=== PATIENT | male | born 1990 | race Caucasian/White ===

== ENCOUNTER 2017-07-07 15:32 | Emergency (ER) | payer MEDICAID ==
[~2017-07-07] VITALS: Ht 193 cm; Wt 84.5 kg
[2017-07-07 15:34] VITALS: BP 141/84
[2017-07-07] MEDS ORDERED: IBUPROFEN 200 MG TABLET PO ONE (16:00)
[2017-07-07] MEDS ORDERED: IBUPROFEN 200 MG TABLET ONE (16:05)
== END 2017-07-07 16:58 | disposition home or self-care (01) ==
LOC: ED 16:45
DX: S90.31XA Contusion of right foot, initial encounter (principal); W22.8XXA Striking against or struck by other objects, initial encounter; Y93.89 Activity, other specified; Y99.8 Other external cause status; Y92.009 Unspecified place in unspecified non-institutional (private) residence as the place of occurrence of the external cause
CPT/HCPCS: 99284

== ENCOUNTER 2017-08-07 02:00 | Emergency (ER) | payer MEDICAID ==
[~2017-08-07] VITALS: Ht 193 cm; Wt 97.6 kg
[2017-08-07 02:05] VITALS: BP 166/91
[2017-08-07] MEDS ORDERED: PENI500T PO (03:23)
[2017-08-07] MEDS ORDERED: NAPR-856 PO (03:24)
[2017-08-07] MEDS ORDERED: HYDROcodone/APAP 5/325 TABLET ONE (03:25)
[2017-08-07] MEDS ORDERED: HYDROcodone/APAP 5/325 TABLET PO STA (03:26)
== END 2017-08-07 03:46 ==
LOC: ED 03:14
DX: K02.9 Dental caries, unspecified (principal)
CPT/HCPCS: 99283

== ENCOUNTER 2017-09-19 19:38 | Emergency (ER) | payer MEDICAID ==
[~2017-09-19] VITALS: Ht 193 cm; Wt 83.8 kg
[~2017-09-19 19:38] MED LIST: NAPR-856 PO; PENI500T PO
[2017-09-19 20:08] LABS: BASOPHILS # (AUTO) 0.01 x10^3/uL (0-0.1); BASOPHILS % (AUTO) 0 % (0-1); EOSINOPHILS % (AUTO) 1 % (1-7); LYMPHOCYTES # (AUTO) 0.64 x10^3/uL (1-3.4); LYMPHOCYTES % (AUTO) 6 % (22-44); MD NO; MEAN CORPUSCULAR HEMOGLOBIN 30.1 pg (27.5-34.5); MEAN CORPUSCULAR VOLUME 88.6 fL (81-97); MEAN PLATELET VOLUME 8.1 fL (7.4-10.4); MONOCYTES # (AUTO) 0.79 x10^3/uL (0.2-0.8); MONOCYTES % (AUTO) 8 % (2-9); NEUTROPHILS # (AUTO) 8.57 x10^3/uL (1.8-6.8); NEUTROPHILS % (AUTO) 85 % (42-75); PLATELET COUNT 280 x10^3/uL (130-400); RED CELL DISTRIBUTION WIDTH 14.3 % (9.4-14.8)
[2017-09-19 20:20] LABS: ANION GAP 7 mmol/L (5-15); CHLORIDE 107 mmol/L (98-107); CREATININE 0.99 mg/dL (0.7-1.3)
[2017-09-19 20:24] LABS: TROPONIN I < 0.015 ng/mL (0.000-0.045)
[2017-09-19] MEDS ORDERED: ACETAMINOPHEN 500 MG TABLET ONE (20:37)
[2017-09-19] MEDS ORDERED: ONDANSETRON ODT 4 MG ONE (20:37)
[2017-09-19 20:54] LABS: BILIRUBIN, DIRECT 0.2 mg/dL (0.1-0.2)
[2017-09-19 20:57] LABS: BILIRUBIN,INDIRECT 0.4 mg/dL (0.0-2.0); BILIRUBIN,TOTAL 0.6 mg/dL (0.2-1.0); TOTAL PROTEIN 7.2 g/dL (6.4-8.2)
[2017-09-19] MEDS ORDERED: ACETAMINOPHEN 500 MG TABLET PO ONE (21:00)
[2017-09-19] MEDS ORDERED: ONDANSETRON ODT 4 MG PO ONE (21:00)
[2017-09-19 21:19] VITALS: BP 130/75
== END 2017-09-19 21:21 | disposition home or self-care (01) ==
LOC: ED 21:15
DX: R07.89 Other chest pain (principal); F17.200 Nicotine dependence, unspecified, uncomplicated; R06.00 Dyspnea, unspecified; R10.13 Epigastric pain; R11.0 Nausea
CPT/HCPCS: 36415; 71046; 76700; 80048; 80076; 82040; 83690; 84484; 85025; 93005; 99285

== ENCOUNTER 2017-12-21 12:01 | Emergency (ER) | payer MEDICAID, OTHER ==
[~2017-12-21] VITALS: Ht 194.3 cm; Wt 89.2 kg
[2017-12-21 12:15] VITALS: BP 135/74
== END 2017-12-21 13:46 | disposition home or self-care (01) ==
LOC: ED 13:30
DX: K02.9 Dental caries, unspecified (principal); K05.10 Chronic gingivitis, plaque induced; K08.89 Other specified disorders of teeth and supporting structures; F17.200 Nicotine dependence, unspecified, uncomplicated
CPT/HCPCS: 99283

== ENCOUNTER 2018-01-08 21:16 | Emergency (ER) | payer SELFPAY ==
[~2018-01-08] VITALS: Ht 193 cm; Wt 93.9 kg
[2018-01-08 21:22] VITALS: BP 134/84
[2018-01-08] MEDS ORDERED: HYDROcodone/APAP 5/325 TABLET ONE (21:56)
[2018-01-08] MEDS ORDERED: HYDROcodone/APAP 5/325 TABLET PO ONE (22:00)
== END 2018-01-08 22:36 | disposition home or self-care (01) ==
LOC: ED 22:20
DX: K04.7 Periapical abscess without sinus (principal)
CPT/HCPCS: 99283

== ENCOUNTER 2018-02-21 10:51 | Emergency (ER) | payer SELFPAY ==
[~2018-02-21] VITALS: Ht 193 cm; Wt 89.0 kg
[2018-02-21 11:01] VITALS: BP 165/95
== END 2018-02-21 12:28 | disposition home or self-care (01) ==
LOC: ED 12:11
DX: S86.212A Strain of muscle(s) and tendon(s) of anterior muscle group at lower leg level, left leg, initial encounter (principal); J45.909 Unspecified asthma, uncomplicated; F17.200 Nicotine dependence, unspecified, uncomplicated; W01.0XXA Fall on same level from slipping, tripping and stumbling without subsequent striking against object, initial encounter; Y93.02 Activity, running; Y92.830 Public park as the place of occurrence of the external cause; Y99.8 Other external cause status
CPT/HCPCS: 99283

== ENCOUNTER 2018-08-22 13:17 | Emergency (ER) | payer SELFPAY ==
[~2018-08-22] VITALS: Ht 193 cm; Wt 85.6 kg
[2018-08-22] MEDS ORDERED: ALBUTEROL/IPRATROPIUM 2.5MG/0.5MG, 3 ML ONE (14:07)
[2018-08-22 14:30] LABS: BASOPHILS # (AUTO) 0.03 x10^3/uL (0-0.1); BASOPHILS % (AUTO) 0 % (0-1); EOSINOPHILS # (AUTO) 0.33 x10^3/uL (0-0.4); EOSINOPHILS % (AUTO) 4 % (1-7); LYMPHOCYTES # (AUTO) 1.23 x10^3/uL (1-3.4); LYMPHOCYTES % (AUTO) 15 % (22-44); MD NO; MEAN CORPUSCULAR HEMOGLOBIN 30.1 pg (27.5-34.5); MEAN CORPUSCULAR HGB CONC 33.2 g/dL (33.2-36.2); MEAN CORPUSCULAR VOLUME 90.6 fL (81-97); MEAN PLATELET VOLUME 8.1 fL (7.4-10.4); MONOCYTES # (AUTO) 0.59 x10^3/uL (0.2-0.8); MONOCYTES % (AUTO) 7 % (2-9); NEUTROPHILS # (AUTO) 6.32 x10^3/uL (1.8-6.8); NEUTROPHILS % (AUTO) 74 % (42-75); PLATELET COUNT 304 x10^3/uL (130-400); RED CELL DISTRIBUTION WIDTH 13.6 % (9.4-14.8)
[2018-08-22 14:42] LABS: ALANINE AMINOTRANSFERASE 25 U/L (12-78); ALBUMIN 4.3 g/dL (3.4-5.0); ANION GAP 5 mmol/L (5-15); CALCIUM 9.6 mg/dL (8.5-10.1); CHLORIDE 108 mmol/L (98-107); CREATININE 0.98 mg/dL (0.7-1.3)
[2018-08-22 14:45] LABS: ALKALINE PHOSPHATASE 56 U/L (45-117); BILIRUBIN,TOTAL 0.7 mg/dL (0.2-1.0); TOTAL PROTEIN 7.5 g/dL (6.4-8.2)
[2018-08-22 16:02] VITALS: BP 123/79
--- NOTE | 2018-08-22 16:03 | NUR ---
Patient/Caregiver given discharge instructions and they have confirmed that they understand the instructions. Patient ambulatory with steady gait.
== END 2018-08-22 16:04 | disposition home or self-care (01) ==
LOC: ED 15:32
DX: J45.41 Moderate persistent asthma with (acute) exacerbation (principal); R11.2 Nausea with vomiting, unspecified; J45.909 Unspecified asthma, uncomplicated; F17.200 Nicotine dependence, unspecified, uncomplicated
CPT/HCPCS: 36415; 71046; 80053; 85025; 93005; 94640; 99284

== ENCOUNTER 2019-01-27 14:13 | Emergency (ER) | payer MEDICAID ==
[~2019-01-27] VITALS: Ht 193 cm; Wt 86.0 kg
[2019-01-27 14:14] VITALS: BP 128/87
--- NOTE | 2019-01-27 14:38 | NUR ---
Pt ambulatory to room with family. Pt reports left sided chest pain that started when he woke-up. Pt reports being sick with a cold for at least a week. Pt reports cough with nasal congestion. Pt reports chest pain with deep inspiration. Pt reports using inhaler [employer]NA[employer]ELOP[employer] without help. Nasal congestion present. Lungs clear. Cough not heard during assessment. Pt placed on pulse ox/HR monitor. Pt in gown. Call light within reach.
[2019-01-27] MEDS ORDERED: KETOROLAC 60 MG/2 ML ONE (14:59)
[2019-01-27] MEDS ORDERED: KETOROLAC 30 MG/1 ML IM ONE (15:00)
--- NOTE | 2019-01-27 15:07 | NUR ---
Pt medicated per MAR. Pt aware of wait for lab and xray results.
[2019-01-27 15:27] LABS: TROPONIN I < 0.015 ng/mL (0.000-0.045)
[2019-01-27 15:30] LABS: BASOPHILS # (AUTO) 0.02 x10^3/uL (0-0.1); BASOPHILS % (AUTO) 0 % (0-1); EOSINOPHILS # (AUTO) 0.77 x10^3/uL (0-0.4); EOSINOPHILS % (AUTO) 7 % (1-7); LYMPHOCYTES # (AUTO) 1.07 x10^3/uL (1-3.4); LYMPHOCYTES % (AUTO) 10 % (22-44); MD NO; MEAN CORPUSCULAR HEMOGLOBIN 27.9 pg (27.5-34.5); MEAN CORPUSCULAR HGB CONC 32.2 g/dL (33.2-36.2); MEAN CORPUSCULAR VOLUME 86.6 fL (81-97); MEAN PLATELET VOLUME 8.1 fL (7.4-10.4); MONOCYTES # (AUTO) 0.95 x10^3/uL (0.2-0.8); MONOCYTES % (AUTO) 9 % (2-9); NEUTROPHILS # (AUTO) 8.17 x10^3/uL (1.8-6.8); NEUTROPHILS % (AUTO) 74 % (42-75); PLATELET COUNT 439 x10^3/uL (130-400); RED BLOOD COUNT 5.02 x10^6/uL (4.38-5.82); RED CELL DISTRIBUTION WIDTH 14.1 % (9.4-14.8)
--- NOTE | 2019-01-27 16:13 | NUR ---
PT TO HAVE DDIMER.
--- NOTE | 2019-01-27 16:51 | NUR ---
Pt alert and resting on gurreynaldo. Pt updated about plan for d/c and VU.
--- NOTE | 2019-01-27 17:02 | NUR ---
PT D/C'D TO SELF CARE. PT EDCUATED ON OTC AND RX MEDICATIONS. PT ADVISED TO STOP SMOKING. EDCUATION PROVIDED. PT JOSE RAMON. PT AMBULATED OUT OF ER.
== END 2019-01-27 17:04 | disposition home or self-care (01) ==
LOC: ED 16:05
DX: M94.0 Chondrocostal junction syndrome [Tietze] (principal); R07.2 Precordial pain; R09.1 Pleurisy; F17.210 Nicotine dependence, cigarettes, uncomplicated
CPT/HCPCS: 36415; 71046; 84484; 85025; 85379; 93005; 96372; 99284; J1885

== ENCOUNTER 2019-02-16 08:58 | Emergency (ER) | payer BC, MEDICAID ==
[~2019-02-16] VITALS: Ht 193 cm; Wt 85.2 kg
--- NOTE | 2019-02-16 09:25 | NUR ---
PT HAS CO CHEST PAIN W COUGH AND SORE THROAT. PT STATES HE HAS HAD A COUGH FOR A FEW WEEKS UNRELEIVED, CHEST PAIN W BREATHING, MOVING, AND COUGHING.
[2019-02-16] MEDS ORDERED: KETOROLAC 60 MG/2 ML ONE (09:28)
[2019-02-16] MEDS ORDERED: HYDROcodone/APAP 5/325 TABLET ONE (09:29)
[2019-02-16] MEDS ORDERED: KETOROLAC 30 MG/1 ML IM ONE (09:30)
[2019-02-16] MEDS ORDERED: HYDROcodone/APAP 5/325 TABLET PO ONE (09:30)
--- NOTE | 2019-02-16 09:41 | NUR ---
MEDICATED FOR PAIN W SOLE. PT REFUSED TORADAL BECAUSE IT HURTS.
[2019-02-16 10:15] LABS: MEAN CORPUSCULAR HEMOGLOBIN 26.8 pg (27.5-34.5); MEAN CORPUSCULAR HGB CONC 32.5 g/dL (33.2-36.2); MEAN CORPUSCULAR VOLUME 82.3 fL (81-97); MEAN PLATELET VOLUME 7.4 fL (7.4-10.4); PLATELET COUNT 501 x10^3/uL (130-400); RED BLOOD COUNT 4.63 x10^6/uL (4.38-5.82); RED CELL DISTRIBUTION WIDTH 14.7 % (9.4-14.8)
[2019-02-16 10:24] LABS: ALBUMIN 3.4 g/dL (3.4-5.0); ANION GAP 6 mmol/L (5-15); CALCIUM 8.4 mg/dL (8.5-10.1); CHLORIDE 105 mmol/L (98-107)
[2019-02-16 10:29] VITALS: BP 129/73
[2019-02-16 10:29] LABS: CREATININE 0.87 mg/dL (0.7-1.3); TROPONIN I < 0.015 ng/mL (0.000-0.045)
[2019-02-16 10:38] LABS: BASOPHILS # (AUTO) 0.08 x10^3/uL (0-0.1); BASOPHILS % (AUTO) 1 % (0-1); EOSINOPHILS # (AUTO) 0.71 x10^3/uL (0-0.4); EOSINOPHILS % (AUTO) 5 % (1-7); LYMPHOCYTES # (AUTO) 1.04 x10^3/uL (1-3.4); LYMPHOCYTES % (AUTO) 8 % (22-44); MD SCAN; MONOCYTES # (AUTO) 1.76 x10^3/uL (0.2-0.8); MONOCYTES % (AUTO) 13 % (2-9); NEUTROPHILS # (AUTO) 9.62 x10^3/uL (1.8-6.8); NEUTROPHILS % (AUTO) 73 % (42-75)
--- NOTE | 2019-02-16 10:45 | NUR ---
MD AT BEDSIDE DISCUSSING POC. PLAN FOR CTA, IV ESTABLISHED.
--- NOTE | 2019-02-16 11:03 | NUR ---
PT TRASPORTED TO CT.
[2019-02-16] MEDS ORDERED: OMNIPAQUE 350 MG/ML, 100ML BOTTLE ONE (11:20)
--- NOTE | 2019-02-16 12:07 | NUR ---
PT RESTING ON GURNEY, VS STABLE NO NEEDS AT THIS TIME
--- NOTE | 2019-02-16 12:16 | NUR ---
Patient/Caregiver given discharge instructions and they have confirmed that they understand the instructions. Patient ambulatory with steady gait.
[2019-02-17] MEDS ORDERED: ALBU18HF IH (12:11)
== END 2019-02-16 12:46 | disposition home or self-care (01) ==
LOC: ED 11:08
DX: R07.89 Other chest pain (principal); F17.200 Nicotine dependence, unspecified, uncomplicated; J45.909 Unspecified asthma, uncomplicated
CPT/HCPCS: 36415; 71046; 71275; 80048; 82040; 84484; 85025; 85379; 93005; 99284; Q9967

== ENCOUNTER 2019-02-17 12:04 | Emergency (ER) | payer BC, MEDICAID ==
[~2019-02-17] VITALS: Ht 193 cm; Wt 84.5 kg
[2019-02-17] MEDS ORDERED: ALBU18HF IH (12:11)
--- NOTE | 2019-02-17 12:18 | NUR ---
PT STATES BACK PAIN "STARTED HURTING REALLY BAD IN THE MIDDLE OF THE NIGHT". PAIN W/ PALPATION OF LOWER THORACIC AREA.
[2019-02-17] MEDS ORDERED: KETOROLAC 30 MG/1 ML IVPush ONE (12:30)
[2019-02-17] MEDS ORDERED: MORPHINE SULFATE 4 MG/ML, 1ML IVPush PRN (12:30)
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
--- NOTE | 2019-02-17 12:46 | NUR ---
SIDE RAILS UP X2, CALL LIGHT W/IN REACH, CARDIAC & VS MONITORING CONTINUING.
[2019-02-17 12:52] LABS: MEAN CORPUSCULAR HEMOGLOBIN 26.4 pg (27.5-34.5); MEAN CORPUSCULAR HGB CONC 32.2 g/dL (33.2-36.2); MEAN CORPUSCULAR VOLUME 81.8 fL (81-97); MEAN PLATELET VOLUME 7.4 fL (7.4-10.4); PLATELET COUNT 486 x10^3/uL (130-400); RED BLOOD COUNT 4.88 x10^6/uL (4.38-5.82); RED CELL DISTRIBUTION WIDTH 14.3 % (9.4-14.8)
[2019-02-17] MEDS ORDERED: KETOROLAC 30 MG/1 ML ONE (12:53)
[2019-02-17] MEDS ORDERED: MORPHINE SULFATE 4 MG/ML, 1ML ONE (12:53)
[2019-02-17 13:00] LABS: ALBUMIN 3.2 g/dL (3.4-5.0); ANION GAP 7 mmol/L (5-15); CALCIUM 8.2 mg/dL (8.5-10.1); CHLORIDE 103 mmol/L (98-107)
--- NOTE | 2019-02-17 13:04 | NUR ---
TORADOL AND MORPHINE GIVEN PER EMAR.
[2019-02-17 13:06] LABS: ALANINE AMINOTRANSFERASE 22 U/L (12-78); ALKALINE PHOSPHATASE 68 U/L (45-117); BILIRUBIN,TOTAL 0.6 mg/dL (0.2-1.0); CREATININE 0.77 mg/dL (0.7-1.3); TROPONIN I < 0.015 ng/mL (0.000-0.045)
[2019-02-17 13:18] LABS: BASOPHILS # (AUTO) 0.03 x10^3/uL (0-0.1); BASOPHILS % (AUTO) 0 % (0-1); EOSINOPHILS # (AUTO) 0.65 x10^3/uL (0-0.4); EOSINOPHILS % (AUTO) 4 % (1-7); LYMPHOCYTES % (AUTO) 4 % (22-44); MD SCAN; MONOCYTES # (AUTO) 1.91 x10^3/uL (0.2-0.8); MONOCYTES % (AUTO) 11 % (2-9); NEUTROPHILS # (AUTO) 13.59 x10^3/uL (1.8-6.8); NEUTROPHILS % (AUTO) 81 % (42-75)
--- NOTE | 2019-02-17 13:47 | NUR ---
please call if admitted [phone] liliana
[2019-02-17 13:49] LABS: CULTURE INDICATED? YES; MICROSCOPIC AUTO
[2019-02-17] MEDS ORDERED: CEFTRIAXONE PMX 1GM/50ML 50 ML ONE (14:19)
--- NOTE | 2019-02-17 14:27 | NUR ---
VERONAHIKris ALCOCER, INFUSING AT 100ML/HR VIA PUMP; IV SITE PATENT.
[2019-02-17] MEDS ORDERED: CEFTRIAXONE PMX 1GM/50ML 50 ML IV ONE (14:30)
[2019-02-17] MEDS ORDERED: AZITHROMYCIN 500 MG in SODIUM CHLORIDE 0.9% 250 ML IV ONE (14:30)
--- NOTE | 2019-02-17 15:09 | NUR ---
ROCEPHIN INFUSED. ZITHROMAX LEODAN, INFUSING AT 250ML/HR VIA PUMP; IV SITE PATENT.
[2019-02-17 16:57] VITALS: BP 118/71
== END 2019-02-17 17:11 | disposition home or self-care (01) ==
LOC: ED 13:51
DX: A41.9 Sepsis, unspecified organism (principal); J15.9 Unspecified bacterial pneumonia; J45.909 Unspecified asthma, uncomplicated; Z87.891 Personal history of nicotine dependence
CPT/HCPCS: 36415; 71045; 72125; 72128; 72131; 80053; 81001; 83605; 84145; 84484; 85025; 87040; 87086; 93005; 96365; 96366; 96368; 96375; 99284; J0456; J0696; J1885; J2270; J7050

== ENCOUNTER 2019-03-15 23:08 | Emergency (ER) | payer BC, MEDICAID ==
[~2019-03-15] VITALS: Ht 193 cm; Wt 88.4 kg
[~2019-03-15 23:08] MED LIST changes: +ALBU18HF IH
[2019-03-15 23:17] VITALS: BP 164/82
[2019-03-15] MEDS ORDERED: PROPARACAINE OPHTH 0.5%, 15ML ONE (23:29)
[2019-03-15] MEDS ORDERED: FLUORESCEIN OPHTHALMIC 1 MG STRIP ONE (23:29)
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
[2019-03-16] MEDS ORDERED: PROPARACAINE OPHTH 0.5%, 15ML EACHEYE ONE
[2019-03-16] MEDS ORDERED: FLUORESCEIN OPHTHALMIC 1 MG STRIP EACHEYE ONE
--- NOTE | 2019-03-16 00:04 | NUR ---
Patient/Caregiver given discharge instructions and they have confirmed that they understand the instructions. Patient ambulatory with steady gait.
== END 2019-03-16 00:07 | disposition home or self-care (01) ==
LOC: ED 23:50
DX: S05.01XA Injury of conjunctiva and corneal abrasion without foreign body, right eye, initial encounter (principal); J45.909 Unspecified asthma, uncomplicated; Z87.891 Personal history of nicotine dependence; X58.XXXA Exposure to other specified factors, initial encounter; Y93.89 Activity, other specified; Y92.89 Other specified places as the place of occurrence of the external cause; Y99.8 Other external cause status
CPT/HCPCS: 99283

== ENCOUNTER 2020-02-03 16:37 | Emergency (ER) | payer BC, MEDICAID ==
[~2020-02-03] VITALS: Ht 193 cm; Wt 91.8 kg
[2020-02-03 16:40] VITALS: BP 142/79
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
--- NOTE | 2020-02-03 17:51 | NUR ---
ERMD AT BEDSIDE TO DISUSS POC
== END 2020-02-03 18:20 | disposition home or self-care (01) ==
LOC: ED 18:00
DX: R21 Rash and other nonspecific skin eruption (principal); K02.9 Dental caries, unspecified; L42 Pityriasis rosea; K08.89 Other specified disorders of teeth and supporting structures
CPT/HCPCS: 99283

== ENCOUNTER 2020-03-29 16:43 | Emergency (ER) | payer BC, MEDICAID ==
[~2020-03-29] VITALS: Ht 193 cm; Wt 89.1 kg
[2020-03-29 16:49] VITALS: BP 141/71
--- NOTE | 2020-03-29 17:17 | NUR ---
Kayden THOMPSON at bedside to evaluate pt.
== END 2020-03-29 17:38 | disposition home or self-care (01) ==
LOC: ED 17:00
DX: K08.89 Other specified disorders of teeth and supporting structures (principal); F17.200 Nicotine dependence, unspecified, uncomplicated; J45.909 Unspecified asthma, uncomplicated
CPT/HCPCS: 64400; 99284

== ENCOUNTER 2020-06-13 20:31 | Emergency (ER) | payer BC, MEDICAID ==
[~2020-06-13] VITALS: Ht 193 cm; Wt 89.0 kg
[2020-06-13] MEDS ORDERED: BUPIVACAINE 0.25% ONE (21:45)
[2020-06-13] MEDS ORDERED: LIDOCAINE-MPF 1%, 5ML ONE (21:45)
[2020-06-13] MEDS ORDERED: LIDOCAINE-MPF 1%, 2ML INFIL ONE (22:00)
[2020-06-13] MEDS ORDERED: BUPIVACAINE 0.25% INFIL ONE (22:00)
--- NOTE | 2020-06-13 22:08 | NUR ---
Patient/Caregiver given discharge instructions and they have confirmed that they understand the instructions. Patient ambulatory with steady gait.
[2020-06-13 22:09] VITALS: BP 125/70
== END 2020-06-13 22:47 | disposition home or self-care (01) ==
LOC: ED 22:01
DX: K02.9 Dental caries, unspecified (principal); K08.89 Other specified disorders of teeth and supporting structures; R51.9 Headache, unspecified; F17.210 Nicotine dependence, cigarettes, uncomplicated; Z72.9 Problem related to lifestyle, unspecified
CPT/HCPCS: 64400; 99406

== ENCOUNTER 2020-09-12 13:08 | Emergency (ER) | payer BC, MEDICAID ==
[~2020-09-12] VITALS: Ht 193 cm; Wt 86.5 kg
--- NOTE | 2020-09-12 13:35 | NUR ---
pt presents to ed with c/o CP and N/V since 0400 this am. pt states generalized weakness and "cannot hold anything down". pt a&o, resps even and unlabored, vss, all monitors attached, nsr, nadn. warm blanket provided, call light in reach.
[2020-09-12] MEDS ORDERED: SODIUM BICARB 8.4%, 50ML SYRINGE IVPush ONE ×2 (14:00)
--- NOTE | 2020-09-12 14:13 | NUR ---
PRECEPTOR RN NOTE: ORDERS CLARIFIED WITH MD, ORDERS FOR SODIUM BICARB AND CREATININE KINASE CANCELLED THEY WERE ORDERED IN ERROR.
[2020-09-12 14:23] LABS: BASOPHILS % (AUTO) 0 % (0-1); EOSINOPHILS % (AUTO) 0 % (1-7); LYMPHOCYTES % (AUTO) 1 % (22-44); MEAN CORPUSCULAR HEMOGLOBIN 22.9 pg (27.5-34.5); MEAN CORPUSCULAR HGB CONC 31.7 g/dL (33.2-36.2); MEAN PLATELET VOLUME 7.6 fL (7.4-10.4); MONOCYTES % (AUTO) 4 % (2-9); NEUTROPHILS % (AUTO) 94 % (42-75); PLATELET COUNT 398 x10^3/uL (130-400); RED BLOOD COUNT 5.76 x10^6/uL (4.38-5.82); RED CELL DISTRIBUTION WIDTH 17.7 % (9.4-14.8)
[2020-09-12 14:28] LABS: ALANINE AMINOTRANSFERASE 25 U/L (12-78); ALBUMIN 3.8 g/dL (3.4-5.0); ANION GAP 5 mmol/L (5-15); CALCIUM 9.1 mg/dL (8.5-10.1); CHLORIDE 107 mmol/L (98-107)
[2020-09-12] MEDS ORDERED: SODIUM CHLORIDE 0.9% 1,000ML IVBOLUS ONE (14:30)
[2020-09-12] MEDS ORDERED: ONDANSETRON 2MG/ML, 2ML IVPush ONE (14:30)
[2020-09-12 14:33] LABS: ALKALINE PHOSPHATASE 42 U/L (45-117); BILIRUBIN,TOTAL 0.5 mg/dL (0.2-1.0); CREATININE 0.96 mg/dL (0.7-1.3); TOTAL PROTEIN 7.1 g/dL (6.4-8.2); TROPONIN I < 0.015 ng/mL (0.000-0.045)
[2020-09-12] MEDS ORDERED: ONDANSETRON 2MG/ML, 2ML ONE ×2 (14:39→14:49)
--- NOTE | 2020-09-12 15:00 | NUR ---
PIV placed by Fly Winder student, meds admin per order, fluids infusing, pt tolerating well. pt a&o, resps even and unlabored, vss, nadn.
--- NOTE | 2020-09-12 15:32 | NUR ---
po challenge tolerated well, pt states no need to vomit at this time. pt a&o, resps even and unlabored, vss, nadn.
--- NOTE | 2020-09-12 16:12 | NUR ---
pt sleeping in bed, resps even and unlabored, vss, all monitors attached, nsr, nadn. fluids infusing, pt tolerating PO fluids at this time.
[2020-09-12 16:53] VITALS: BP 120/72
--- NOTE | 2020-09-12 17:56 | NUR ---
PIV dc'd with tip intact, discharge instructions reviewed, pt educated on follow-up, prescription, and return criteria, pt verbalized understanding. pt a&o, resps even and unlabored, vss, nadn. ambulatory to discharge with steady gait.
== END 2020-09-12 18:02 | disposition home or self-care (01) ==
LOC: ED 14:03
DX: R11.2 Nausea with vomiting, unspecified (principal); E86.0 Dehydration; R19.7 Diarrhea, unspecified; R10.9 Unspecified abdominal pain; R00.0 Tachycardia, unspecified; F17.200 Nicotine dependence, unspecified, uncomplicated
CPT/HCPCS: 36415; 71045; 80053; 83690; 84484; 85025; 93005; 96361; 96374; 99285; J2405; J7030

== ENCOUNTER 2020-09-30 19:42 | Emergency (ER) | payer MEDICAID ==
[~2020-09-30] VITALS: Ht 193 cm; Wt 87.8 kg
[2020-09-30 19:44] VITALS: BP 128/76
[2020-09-30] MEDS ORDERED: BACITRACIN ZINC OINT 500U/GM, 0.9 GM ONE (20:36)
--- NOTE | 2020-09-30 20:41 | NUR ---
Patient given discharge instructions and they have confirmed that they understand the instructions. Patient ambulatory with steady gait. NAD, all questions answered appropriately, denies additional needs at this time. No personal belongings left in room after discharge.
== END 2020-09-30 20:42 | disposition home or self-care (01) ==
LOC: ED 20:35
DX: S00.01XA Abrasion of scalp, initial encounter (principal); F17.200 Nicotine dependence, unspecified, uncomplicated; Z72.9 Problem related to lifestyle, unspecified; R51.9 Headache, unspecified; J45.909 Unspecified asthma, uncomplicated; F17.210 Nicotine dependence, cigarettes, uncomplicated; X58.XXXA Exposure to other specified factors, initial encounter; Y93.89 Activity, other specified; Y92.89 Other specified places as the place of occurrence of the external cause; Y99.8 Other external cause status
CPT/HCPCS: 99282

== ENCOUNTER 2020-10-03 11:58 | Emergency (ER) | payer MEDICAID ==
[~2020-10-03] VITALS: Ht 193 cm; Wt 87.7 kg
[2020-10-03 12:29] VITALS: BP 157/101
== END 2020-10-03 13:35 | disposition home or self-care (01) ==
LOC: ED 12:36
DX: G44.319 Acute post-traumatic headache, not intractable (principal); F07.81 Postconcussional syndrome; K08.89 Other specified disorders of teeth and supporting structures; J45.909 Unspecified asthma, uncomplicated
CPT/HCPCS: 99283

== ENCOUNTER 2020-10-07 14:22 | Emergency (ER) | payer MEDICAID ==
[~2020-10-07] VITALS: Ht 182.9 cm; Wt 85.7 kg
[2020-10-07 14:54] VITALS: BP 119/73
[2020-10-07] MEDS ORDERED: DEXAMETHASONE 4 MG/ML, 1ML PO ONE (15:00)
[2020-10-07] MEDS ORDERED: PLEASE ENTER HEIGHT AND WEIGHT MC SCH (15:00)
[2020-10-07] MEDS ORDERED: DEXAMETHASONE 4 MG/ML, 5ML ONE ×2 (15:01→15:06)
--- NOTE | 2020-10-07 15:11 | NUR ---
PASCALE DAWKINS MEDICATING PT.
== END 2020-10-07 15:24 | disposition home or self-care (01) ==
LOC: ED 14:34
DX: B34.9 Viral infection, unspecified (principal); Z20.822 Contact with and (suspected) exposure to COVID-19; F17.210 Nicotine dependence, cigarettes, uncomplicated; J45.909 Unspecified asthma, uncomplicated
CPT/HCPCS: 99283; 99406; J1100; U0003; U0005